=== PATIENT | male | born 1935 | race Caucasian/White ===

== ENCOUNTER 2017-05-21 09:43 | Inpatient (IN) | payer OTHER ==
[~2017-05-21] VITALS: Ht 182.9 cm; Wt 76.3 kg
[~2017-05-21 09:43] MED LIST: ASPIR-LOW81 MG PO; CLINDAMYCIN HC150 MG PO; FUROSEMIDE20 MG PO; MIRTAZAPINE30 MG PO; POTASSIUM CHLO20 ME1 PO
[2017-05-21 11:15] LABS: EOSINOPHIL (%) 0.2 % (0-5); HEMATOCRIT 45.9 % (38.0-50.0); IMMATURE GRANULOCYTE (%) 0.4 % (0.0-0.7); INSTRUMENT ABS NEUTROPHIL CT 6.9 K/uL; LYMPHOCYTE COUNT 0.9 K/uL (1.0-2.8); MCH 31.5 PG (29.0-34.0); MCHC 32.7 G/DL (30.0-36.0); MCV 96.4 FL (86-99); MEAN PLAT.VOLUME 9.9 uM^3 (9.0-12.4); MONOCYTE (%) 4.6 % (3-12); MONOCYTE COUNT 0.4 K/uL (0-0.8); NEUTROPHIL (%) 84.1 % (45-76); NEUTROPHIL COUNT 6.9 K/uL (1.8-6.4); PLATELET COUNT 182 K/uL (156-360); RBC DIS.WIDTH-CV 12.6 % (11.8-14.6); RBC DIS.WIDTH-SD 45.2 % (39-53); RED BLOOD COUNT 4.76 M/uL (4.00-5.50); WHITE BLOOD COUNT 8.2 K/uL (4.1-10.2)
[2017-05-21 11:24] LABS: CHLORIDE 108 mEq/L (99-109); POTASSIUM 3.9 mEq/L (3.7-5.4); SODIUM 141 mEq/L (136-147)
[2017-05-21 11:26] LABS: GLUCOSE 116 mg/dL (70-99)
[2017-05-21 11:27] LABS: ANION GAP 7 MEQ/L (2-14)
[2017-05-21 11:28] LABS: TOTAL BILIRUBIN 2.1 mg/dL (0.0-1.0)
[2017-05-21 11:29] LABS: ALKALINE PHOSPHATASE 92 IU/L (3-129)
[2017-05-21 11:30] LABS: GFR ESTIMATE (CALCULATED) > 59 mL/min/
[2017-05-21 11:31] LABS: UREA NITROGEN (BUN) 19 mg/dL (9-23)
[2017-05-21 11:50] LABS: TROP-I INTERPRETATION NEGATIVE; TROPONIN-I 0.02 ng/mL (0.0-0.30)
[2017-05-21] MEDS ORDERED: SINEMET 25-1001 EACH PO ×4 (12:23→12:24)
[2017-05-21] MEDS ORDERED: OTC STOOL SOFTENER PO (12:25)
[2017-05-21 15:19] VITALS: BP 157/72
[2017-05-21 15:20] VITALS: BP 146/71; BP 159/76
[2017-05-21 18:22] LABS: TROP-I INTERPRETATION NEGATIVE; TROPONIN-I 0.03 ng/mL (0.0-0.30)
[2017-05-21 20:00] VITALS: BP 127/77
[2017-05-22] VITALS (8 sets, daily range): BP systolic 104–160; BP diastolic 57–87
[2017-05-22 00:55] LABS: TROP-I INTERPRETATION NEGATIVE; TROPONIN-I 0.03 ng/mL (0.0-0.30)
[2017-05-22 05:53] LABS: ANION GAP 8 MEQ/L (2-14); CHLORIDE 109 MEQ/L (99-109); GFR ESTIMATE (CALCULATED) > 59 mL/min/; GLUCOSE 91 mg/dL (70-99); SAMPLE HEMOLYSIS CHECK 0; SAMPLE ICTERIC CHECK 0; SAMPLE LIPEMIA CHECK 0; SODIUM 141 MEQ/L (136-147); UREA NITROGEN (BUN) 15 mg/dL (9-23)
[2017-05-23] VITALS (7 sets, daily range): BP systolic 106–163; BP diastolic 52–85
[2017-05-24] VITALS: BP 135/70
[2017-05-24 04:11] VITALS: BP 136/63
[2017-05-24 08:06] VITALS: BP 181/84
[2017-05-24 11:52] VITALS: BP 160/78
[2017-05-24 16:45] VITALS: BP 142/67
[2017-05-24 19:40] VITALS: BP 138/62
[2017-05-25] VITALS: BP 113/68
[2017-05-25 07:45] VITALS: BP 113/56
[2017-05-25 12:00] VITALS: BP 145/85
[2017-05-25 16:00] VITALS: BP 108/51
[2017-05-25 20:00] VITALS: BP 115/56
[2017-05-26] VITALS (7 sets, daily range): BP systolic 114–153; BP diastolic 54–67
[2017-05-27] VITALS (12 sets, daily range): BP systolic 101–141; BP diastolic 50–74
[2017-05-27 00:10] LABS: METH RESISTANT S AUREUS PCR NEGATIVE (NEGATIVE)
[2017-05-27 00:16] LABS: PROBE CHECK PASS; SPECIMEN PROCESSING CONTROL PASS
[2017-05-27] MEDS ORDERED: HYDROCODON-ACE1 EAC7 PO (08:45)
[2017-05-28] VITALS: BP 161/69
[2017-05-28 02:00] VITALS: BP 107/53
[2017-05-28 04:00] VITALS: BP 127/61
[2017-05-28 08:00] VITALS: BP 141/72
[2017-05-28 12:00] VITALS: BP 123/60
== END 2017-05-28 14:05 | disposition home health service (06) | DRG 38 ==
LOC: EME 09:43 → EDOF 12:12 → 5WEST 12:12 → ENRESERV 12:22 → 5WEST 15:06 → 4WEST 05-22 12:29 → 5WEST 05-22 12:29 → CANRESERV 05-22 12:40 → ENRESERV 05-22 12:40 → CANRESERV 05-23 08:36 → ENRESERV 05-23 08:36 → 5WEST 05-26 17:03 → ENRESERV 05-26 19:10 → 4WEST 05-26 22:34 → CANRESERV 05-27 04:30 → ENRESERV 05-27 04:30 → 4WEST 05-28 14:05
PROVIDERS: Emergency Medicine; Internal Medicine; Surgery
DX: I65.23 Occlusion and stenosis of bilateral carotid arteries (principal); I95.1 Orthostatic hypotension; G24.01 Drug induced subacute dyskinesia; T42.8X5A Adverse effect of antiparkinsonism drugs and other central muscle-tone depressants, initial encounter; R41.0 Disorientation, unspecified; R33.8 Other retention of urine; G20 Parkinson's disease; G30.9 Alzheimer's disease, unspecified; F02.80 Dementia in other diseases classified elsewhere, unspecified severity, without behavioral disturbance, psychotic disturbance, mood disturbance, and anxiety; N40.1 Benign prostatic hyperplasia with lower urinary tract symptoms; R32 Unspecified urinary incontinence; I50.32 Chronic diastolic (congestive) heart failure; I25.10 Atherosclerotic heart disease of native coronary artery without angina pectoris; I45.10 Unspecified right bundle-branch block; M19.90 Unspecified osteoarthritis, unspecified site; E78.5 Hyperlipidemia, unspecified; M25.551 Pain in right hip; I87.2 Venous insufficiency (chronic) (peripheral); Z87.891 Personal history of nicotine dependence; Z79.82 Long term (current) use of aspirin; Z82.49 Family history of ischemic heart disease and other diseases of the circulatory system; Z87.442 Personal history of urinary calculi; Z96.641 Presence of right artificial hip joint
CPT/HCPCS: 70450; 70498; 71010; 71275; 73502; 80048; 80053; 81003; 84484; 85025; 87641; 93005; 93306; 93880; 94799; 99281; 99285; C1768; G0378; J0330; J0690; J1170; J1630; J1644; J1650; J2060; J2405; J2720; J2795; J3010; J7030; J7120